=== PATIENT | female | born 1975 | race Two or more races ===

== ENCOUNTER → 2024-11-09 | Outpatient (CLI) | payer MEDICAID, SELFPAY ==
--- NOTE | 2024-11-09 14:00 | XR_ITS ---
Examination: Thyroid sonography complete TECHNIQUE: Grayscale sonographic images thyroid lobes Exam date and time: November 09, 2024 1348 hours INDICATIONS: Abnormal thyroid function tests on laboratory examination performed 2 weeks ago. FINDINGS: Right thyroid 4.8 cm Midpole nodule 6 x 5 mm Left thyroid 4.6 cm Lower pole vascular nodule 14 x 8 x 10 mm IMPRESSION: Bilateral thyroid nodules as above Consider ultrasound-guided fine-needle aspiration of the lower pole vascular left thyroid nodule, 14 x 8 x 10 mm
== END | disposition home or self-care (01) ==
PROVIDERS: PCP Family Medicine; Referring Provider Nurse Practitioner Family; Visit Provider Nurse Practitioner Family
DX: E04.2 Nontoxic multinodular goiter (principal)
CPT/HCPCS: 76536

== ENCOUNTER 2024-11-11 08:30 | Outpatient (RCR) | payer MEDICAID, SELFPAY ==
--- NOTE | 2024-11-10 08:45 | XR_ITS ---
Examination: Nuclear medicine thyroid uptake and scan Date and time: November 10, 2024 0745 hours INDICATIONS: Tachycardia insomnia swollen neck months TECHNIQUE AND FINDINGS: Oral demonstration [id number] uCi [id number] 6 hour 24 hours uptake values recorded as well as thyroid scans 6 hour uptake 12.7% normal range 6-24% 24 hour uptake 20.1% normal range 10-36% Homogeneous anterior and oblique thyroid scans IMPRESSION: Negative examination
[2024-11-10 09:09] LABS: HCG Qualitative,Urine Negative
== END 2024-11-16 23:59 | disposition home or self-care (01) ==
LOC: SNUC 08:30
PROVIDERS: PCP Nurse Practitioner Family; Referring Provider Nurse Practitioner Family; Visit Provider Nurse Practitioner Family
DX: G47.00 Insomnia, unspecified (principal); R00.0 Tachycardia, unspecified; R94.6 Abnormal results of thyroid function studies; Z32.00 Encounter for pregnancy test, result unknown
CPT/HCPCS: 78013; 81025; A9516